=== PATIENT | female | born 1940 | race Caucasian/White ===

== ENCOUNTER 2018-01-29 13:23 | Emergency (ER) | payer MEDICARE, BC ==
[2018-01-29] MEDS ORDERED: NS 0.9% 1000 ML* 1,000 ML IV ONE (13:40)
[2018-01-29] MEDS ORDERED: Ondansetron INJ* 2 MG/ML VIAL IV ONE (13:41)
--- NOTE | 2018-01-29 14:01 | ED ---
GI/ HPI - HPI Summary HPI Summary: 77 year female presents with abdominal pain for the past couple days. She admits to nausea and vomiting that is going on for the past month. Daughter states that they have been switching her psychiatric medications but they have not changed anything in the past month. She states his been having changes in cognitive status but actually is more improved the past couple days. Has a follow-up with neurology after an MRI this week. No fevers. No chest pressures or shortness of breath. No cough. No recent illness. No recent antibiotic use. She admits to diarrhea. She admits to lower abdominal pain. No previous belly surgeries. she admits to jaw pain. No dental pain. - History of Current Complaint Chief Complaint: EDAbdPain Time Seen by Provider: 01/29/18 13:30 Stated Complaint: ABD PAIN Pain Intensity: 2 - Allergy/Home Medications Allergies/Adverse Reactions: Allergies Allergy/AdvReac Type Severity Reaction Status Date / Time No Known Allergies Allergy Verified 01/29/18 12:21 Home Medications: Home Medications Cyanocobalamin INJ * [Vitamin B12 INJ *] 1,000 mcg IM MONTHLY 01/29/18 [History Confirmed 01/29/18] Levothyroxine TAB* [Synthroid TAB*] 50 mcg PO DAILY 01/29/18 [History Confirmed 01/29/18] Metoclopramide TAB* [Reglan TAB*] 5 mg PO Q6H PRN 01/29/18 [History Confirmed ] PARoxetine HCL TAB* [Paxil TAB*] 10 mg PO DAILY 01/29/18 [History Confirmed ] traZODone TAB* [Desyrel TAB*] 50 mg PO BEDTIME 01/29/18 [History Confirmed 01/29] PMH/Surg Hx/FS Hx/Imm Hx Endocrine/Hematology History: Denies: Hx Diabetes Cardiovascular History: Denies: Hx Hypertension, Hx Pacemaker/ICD History: Denies: Hx Renal Disease Sensory History: Denies: Hx Hearing Aid Psychiatric History: Denies: Hx Panic Disorder - Surgical History Surgery Procedure, Year, and Place: LEFT KNEE REPLACEMENT. TONSILS Infectious Disease History: No Infectious Disease History: Denies: Traveled Outside the [place] in Last 30 Days - Family History Known Family History: Positive: Hypertension - Social History Alcohol Use: Weekly Substance Use Type: Reports: None Smoking Status (MU): Heavy Every Day Tobacco Smoker Review of Systems Negative: Fever Negative: Chest Pain Negative: Shortness Of Breath Positive: Abdominal Pain, Vomiting, Diarrhea, Nausea All Other Systems Reviewed And Are Negative: Yes Physical Exam Triage Information Reviewed: Yes Vital Signs On Initial Exam: Initial Vitals Temp Pulse Resp BP Pulse Ox 97.6 F 78 16 141/88 99 01/29/18 13:25 01/29/18 13:25 01/29/18 13:25 01/29/18 13:25 01/29/18 13:25 Vital Signs Reviewed: Yes Appearance: Positive: Well-Appearing Skin: Positive: Warm, Dry Head/Face: Positive: Normal Head/Face Inspection Eyes: Positive: Normal, Conjunctiva Clear ENT: Positive: Pharynx normal Respiratory/Lung Sounds: Positive: Clear to Auscultation, Breath Sounds Present Cardiovascular: Positive: Normal, RRR Abdomen Description: Positive: Soft, Other: - tenderness periumbilically Bowel Sounds: Positive: Present Musculoskeletal: Positive: Normal Neurological: Positive: Normal Psychiatric: Positive: Normal Diagnostics - Vital Signs Vital Signs Temp Pulse Resp BP Pulse Ox 01/29/18 13:25 97.6 F 78 16 141/88 99 - Laboratory Result Diagrams: 01/29/18 14:07 01/29/18 14:07 Lab Statement: Any lab studies that have been ordered have been reviewed, and results considered in the medical decision making process. - CT abd CT Interpretation: Positive (See Comments) - IMPRESSION: There is likely diverticulitis of the sigmoid colon without evidence of peridiverticular abscess. CT Interpretation Completed By: Radiologist - EKG No standard instances Cardiac Rate: NL EKG Rhythm: Sinus Rhythm EKG Interpretation: sinus rhythm GIGU Course/Dx - Course Course Of Treatment: 77 year female presents with abdominal pain for the past couple days. She admits to nausea and vomiting that is going on for the past month. Daughter states that they have been switching her psychiatric medications but they have not changed anything in the past month. She states his been having changes in cognitive status but actually is more improved the past couple days. Has a follow-up with neurology after an MRI this week. No fevers. No chest pressures or shortness of breath. No cough. No recent illness. No recent antibiotic use. She admits to diarrhea. She admits to lower abdominal pain. No previous belly surgeries. she admits to jaw pain. No dental pain. on exam has nontender jaw. tenderness lower abd. ekg sinus rhythmn. wbc normal. electrolytes normal. crp elevated. CT shows diverticulitis. will treat with cipro and flagyl. discussed will add on zofran for nausea. told to follow up with primary about CT results with adrenal adenoma. patient and family understand and agrees with plan. - Diagnoses Differential Diagnoses - Female: Colitis, Diverticulitis, Urinary Tract Infection Provider Diagnoses: Diverticulitis Discharge - Sign-Out/Discharge Documenting (check all that apply): Patient Departure - Discharge Plan Condition: Good Disposition: HOME Prescriptions: Ciprofloxacin TAB* [Cipro 500 MG TAB*] 500 mg PO BID #19 tab metroNIDAZOLE [Flagyl 500 MG TAB] 500 mg PO TID #29 tab Ondansetron ODT TAB* [Zofran 4 MG Odt TAB*] 4 mg PO Q6H PRN #20 tab.odt PRN Reason: Nausea Patient Education Materials: Diverticulitis (ED) Referrals: No Primary Care Phys,NOPCP [Primary Care Provider] - Additional Instructions: Take ciprofloxacin twice a day for 10 days, first dose given in ED Take Flagyl every 8 hours for 10 days, first dose given in ED Take Zofran every 6 hours for nausea Follow clear liquid diet until symptoms improve follow up with primary within 7 days Return to ED if unable to keep anything down, develop fever, or any new or worsening symptoms - Billing Disposition and Condition Condition: GOOD Disposition: Home
[2018-01-29 14:13] LABS: ABS Basophils 0.1 10^3/ul (0-0.2); ABS Eosinophils 0 10^3/ul (0-0.6); ABS Lymphocytes 1.5 10^3/ul (1.0-4.8); ABS Monocytes 0.5 10^3/ul (0-0.8); ABS Neutrophils 4.9 10^3/ul (1.5-7.7); ABS Nucleated RBC 0 10^3/ul; Eosinophil % 0.7 % (0-6); Hematocrit 43 % (35-47); Hemoglobin 14.6 g/dl (12.0-16.0); Lymphocyte % 21.4 % (25-47); Mean Corpuscular HGB Conc 34 g/dl (31-36); Mean Corpuscular Hemoglobin 34 pg (27-31); Mean Corpuscular Volume 100 fL (80-97); Mean Platelet Volume 7.9 um3 (7.4-10.4); Nucleated Red Blood Cells % 0.1; Platelet Count 410 10^3/ul (150-450); Red Blood Count 4.33 10^6/ul (4.00-5.40); Red Cell Distribution Width 13 % (10.5-15); White Blood Count 6.9 10^3/ul (3.5-10.8)
[2018-01-29 14:36] LABS: EGFR Non-African American 103.1 (>60)
[2018-01-29] MEDS ORDERED: Iohexol 300* (CONTRAST) 10 ML SDV IV ONE (15:00)
--- NOTE | 2018-01-29 16:25 | RAD ---
Indication: Lower abdominal pain. Contrast: Administered 93.0 ml of OMNIPAQUE 300 mg/ml CT of the abdomen and pelvis was performed after oral and IV contrast administration. Coronal and sagittal reconstructed images were obtained. No prior study is available for comparison. The lung bases demonstrate no pleural fluid, nodules or masses. Heart is of normal size without evidence of pericardial effusion. The liver is normal in size. No focal lesions or intrahepatic ductal dilatation is noted. The gallbladder demonstrates no calcified gallstones. No pericholecystic fluid or wall thickening is noted. The spleen is normal in size. The pancreas demonstrates no mass or pancreatic duct dilatation. The common duct is not dilated. There is a left adrenal mass measuring 2.5 cm and a right adrenal mass measuring up to 1.8 cm. These may represent adrenal adenomas. If clinically warranted MR of the adrenal glands, adrenal gland protocol CT or follow-up CT could be performed. The kidneys demonstrate symmetric nephrograms with areas of scarring. There is right renal cyst measuring up to 2.1 cm. No retroperitoneal lymphadenopathy is noted. No dilated loops of bowel are noted. CT of the pelvis demonstrates diverticulitis of the sigmoid colon with wall thickening of the sigmoid colon. Pericolonic infiltration of fat is noted. No evidence of peridiverticular abscess is noted. The uterus and ovaries are unremarkable. The urinary bladder is unremarkable. The bony structures are otherwise unremarkable. Degenerative disc disease at L2-L3, L3-L4 is noted. No compression fracture is noted. IMPRESSION: There is likely diverticulitis of the sigmoid colon without evidence of peridiverticular abscess. Bilateral adrenal masses are noted. These may represent adrenal adenomas. Follow-up exam by CT or MR of the adrenal glands should BE considered as clinically warranted.
[2018-01-29] MEDS ORDERED: Ciprofloxacin TAB* 500 MG PO ONE (16:35)
[2018-01-29] MEDS ORDERED: metroNIDAZOLE TAB* 250 MG PO ONE (16:35)
[2018-01-29 17:01] VITALS: BP 128/87
== END 2018-01-29 17:01 | disposition home or self-care (01) ==
LOC: ED 13:23
DX: K57.92 Diverticulitis of intestine, part unspecified, without perforation or abscess without bleeding (principal)
CPT/HCPCS: 36415; 74177; 80053; 83605; 83690; 84484; 85025; 86140; 93005; 96361; 96374; 96375; 99283; A9270-GY; J2405; Q9967

== ENCOUNTER 2018-02-11 12:04 | Emergency (ER) | payer MEDICARE, BC ==
[2018-02-11 13:37] LABS: ABS Basophils 0.1 10^3/ul (0-0.2); ABS Eosinophils 0.1 10^3/ul (0-0.6); ABS Lymphocytes 1.4 10^3/ul (1.0-4.8); ABS Monocytes 0.7 10^3/ul (0-0.8); ABS Neutrophils 4.8 10^3/ul (1.5-7.7); ABS Nucleated RBC 0 10^3/ul; Eosinophil % 1.9 % (0-6); Hematocrit 43 % (35-47); Hemoglobin 14.4 g/dl (12.0-16.0); Lymphocyte % 19.8 % (25-47); Mean Corpuscular HGB Conc 34 g/dl (31-36); Mean Corpuscular Hemoglobin 34 pg (27-31); Mean Corpuscular Volume 101 fL (80-97); Mean Platelet Volume 8.3 um3 (7.4-10.4); Nucleated Red Blood Cells % 0.1; Platelet Count 412 10^3/ul (150-450); Red Blood Count 4.26 10^6/ul (4.00-5.40); Red Cell Distribution Width 14 % (10.5-15); White Blood Count 7.1 10^3/ul (3.5-10.8)
[2018-02-11 13:49] LABS: EGFR Non-African American 88.6 (>60)
[2018-02-11 19:45] VITALS: BP 128/82
--- NOTE | 2018-02-11 23:56 | ED ---
Abdominal Pain/Female - HPI Summary HPI Summary: Patient is a 77 y/o F w/ c/o lower abdominal pain for the past two weeks. She was seen at [facility] [place] and diagnosed with diverticulitis. She was placed on 10 days of flagyl and cipro, which patient reports she has been taking. However, she did not follow up with PCP and GI as she was instructed to and is still experiencing pain. Pain is reported to be constant, she denies vomiting but reports some nausea and diarrhea. Black, tarry stools are denied. PMHx of diabetes and FMHx of colon polyps is denied. Patient further denies fever, chills, [place], ear pain, sore throat, blurred vision, double vision, neck pain, CP , SOB, back pain, dysuria, hematuria, blood in the stool, edema, bruising, rashes, anxiety, and depression. On triage, pain is rated 7/10, nothing is noted to aggravate/alleviate Sx. Home medications and allergies are reviewed. - History of Current Complaint Chief Complaint: EDAbdPain Stated Complaint: ABD PAIN Hx Obtained From: Patient Onset/Duration: Lasting Weeks - two weeks, Still Present Timing: Weeks - two weeeks Severity Initially: Severe - 7/10 Severity Currently: Severe - 7/10 Pain Intensity: 7 Pain Scale Used: 0-10 Numeric - 7/10 Location: Other - lower abdominal pain Aggravating Factor(s): Nothing Alleviating Factor(s): Nothing Associated Signs and Symptoms: Positive: Nausea, Diarrhea, Other: - denies chills, [place], ear pain, sore throat, blurred vision, double vision, neck pain, SOB , dysuria, hematuria, black/tarry stools, edema, bruising, rashes, anxiety, and depression. Negative: Fever, Chest Pain, Back Pain, Blood in Stool, Urinary Symptoms, Vomiting Allergies/Adverse Reactions: Allergies Allergy/AdvReac Type Severity Reaction Status Date / Time No Known Allergies Allergy Verified 02/11/18 12:17 PMH/Surg Hx/FS Hx/Imm Hx Endocrine/Hematology History: Denies: Hx Diabetes Cardiovascular History: Denies: Hx Hypertension, Hx Pacemaker/ICD History: Denies: Hx Renal Disease Sensory History: Denies: Hx Hearing Aid Psychiatric History: Denies: Hx Panic Disorder - Surgical History Surgery Procedure, Year, and Place: LEFT KNEE REPLACEMENT. TONSILS Infectious Disease History: No Infectious Disease History: Denies: Traveled Outside the [place] in Last 30 Days - Family History Known Family History: Positive: Hypertension - Social History Alcohol Use: Weekly Substance Use Type: Reports: None Smoking Status (MU): Heavy Every Day Tobacco Smoker Review of Systems Negative: Fever, Chills Positive: Other - NEGATIVE: double vision . Negative: Blurred Vision Negative: Sore Throat, Ear Ache Negative: Chest Pain Negative: Shortness Of Breath Positive: Abdominal Pain, Diarrhea, Nausea. Negative: Vomiting Positive: other - NEGATIVE: blood in stool, black/tarry stool . Negative: dysuria, hematuria Positive: Other - NEGATIVE: back/neck pain . Negative: Edema Negative: Rash, Bruising Negative: Headache Negative: Anxious, Depressed All Other Systems Reviewed And Are Negative: No Physical Exam - Summary Physical Exam Summary: Appearance: Alert, conversive, nontoxic appearing Skin: Warm, dry, no mottling, no rashes, no contusions HEENT: EOMI, PERRL, moist mucous membranes Neck: No masses on the neck, supple Respiratory: Clear to auscultation, breath sounds present, no rales, no rhonchi , no wheezes Cardiovascular: RRR, pulses are symmetrical in both lower and upper extremities Abdomen: Soft, non-tender Bowel Sounds: Present Musculoskeletal: No CVA tenderness, no obvious deformity, moving all extremities in a grossly normal manner Neurological: A&Ox3, CN II-XII Intact, moving all extremities symmetrically Psychiatric: Normal affect and mood Triage Information Reviewed: Yes Vital Signs On Initial Exam: Initial Vitals Temp Pulse Resp BP Pulse Ox 98.7 F 92 14 133/91 95 02/11/18 12:15 02/11/18 12:15 02/11/18 12:15 02/11/18 12:15 02/11/18 12:15 Vital Signs Reviewed: Yes Diagnostics - Vital Signs Vital Signs Temp Pulse Resp BP Pulse Ox 02/11/18 19:49 99.7 F 86 16 128/82 93 02/11/18 19:41 128/82 02/11/18 19:34 123/84 02/11/18 19:04 115/81 02/11/18 18:34 123/83 02/11/18 18:04 85 115/84 94 02/11/18 18:00 84 95 02/11/18 17:34 89 120/82 94 02/11/18 17:33 89 02/11/18 14:58 98.7 F 91 16 122/82 96 02/11/18 12:15 98.7 F 92 14 133/91 95 - Laboratory Lab Results: Lab Results 02/11/18 02/11/18 02/11/18 Range/Units 13:10 13:10 13:10 WBC 7.1 (3.5-10.8) 10^3/ul RBC 4.26 (4.00-5.40) 10^6/ul Hgb 14.4 (12.0-16.0) g/dl Hct 43 (35-47) % MCV 101 H (80-97) fL MCH 34 H (27-31) pg MCHC 34 (31-36) g/dl RDW 14 (10.5-15) % Plt Count 412 (150-450) 10^3/ul MPV 8.3 (7.4-10.4) um3 Neut % (Auto) 67.5 (38-83) % Lymph % (Auto) 19.8 L (25-47) % [place] % (Auto) 9.5 H (0-7) % Eos % (Auto) 1.9 (0-6) % Baso % (Auto) 1.3 (0-2) % Absolute Neuts (auto) 4.8 (1.5-7.7) 10^3/ul Absolute Lymphs (auto) 1.4 (1.0-4.8) 10^3/ul Absolute Monos (auto) 0.7 (0-0.8) 10^3/ul Absolute Eos (auto) 0.1 (0-0.6) 10^3/ul Absolute Basos (auto) 0.1 (0-0.2) 10^3/ul Absolute Nucleated RBC 0 10^3/ul Nucleated RBC % 0.1 Sodium 141 (135-145) mmol/L Potassium 4.0 (3.5-5.0) mmol/L Chloride 106 (101-111) mmol/L Carbon Dioxide 28 (22-32) mmol/L Anion Gap 7 (2-11) mmol/L BUN 8 (6-24) mg/dL Creatinine 0.65 (0.51-0.95) mg/dL Est GFR ( Amer) 107.2 (>60) Est GFR (Non-Af Amer) 88.6 (>60) BUN/Creatinine Ratio 12.3 (8-20) Glucose 99 (70-100) mg/dL Lactic Acid 1.6 (0.5-2.0) mmol/L Calcium 9.4 (8.6-10.3) mg/dL Total Bilirubin 0.20 (0.2-1.0) mg/dL AST 22 (13-39) U/L ALT 13 (7-52) U/L Alkaline Phosphatase 76 (34-104) U/L C-Reactive Protein 9.36 H (<8.01) mg/L Total Protein 6.8 (6.4-8.9) g/dL Albumin 3.8 (3.2-5.2) g/dL Globulin 3.0 (2-4) g/dL Albumin/Globulin Ratio 1.3 (1-3) Lipase 33 (11.0-82.0) U/L Result Diagrams: 02/11/18 13:10 02/11/18 13:10 Lab Statement: Any lab studies that have been ordered have been reviewed, and results considered in the medical decision making process. Abdominal Pain Fem Course/Dx - Course Course Of Treatment: Patient is a 77 y/o F w/ c/o lower abdominal pain for the past two weeks. She was seen at [facility] [place] and diagnosed with diverticulitis. She was placed on 10 days of flagyl and cipro, which patient reports she has been taking. However, she did not follow up with PCP and GI as she was instructed to and is still experiencing pain. Pain is reported to be constant, she denies vomiting but reports some nausea and diarrhea. Black, tarry stools are denied. PMHx of diabetes and FMHx of colon polyps is denied. Physical exam was normal. Labs showed lipase 33, CRP 9.36, lactic acid 1.6, WBC 7.1. Blood culture obtained. Patient was instructed to establish care in the area with a primary care physician and a call person. Patient is agreeable with this plan. Dx of abdominal pain, Hx of diverticulitis. - Diagnoses Provider Diagnoses: Abdominal pain, History of diverticulitis Discharge - Sign-Out/Discharge Documenting (check all that apply): Patient Departure - discharge - Discharge Plan Condition: Stable Disposition: HOME Patient Education Materials: Acute Abdominal Pain (ED) Referrals: [facility] [Provider Group] No Primary Care Phys,NOPCP [Primary Care Provider] - Dimitris Molina MD [Medical Doctor] - Additional Instructions: Please establish care in the area with a primary care physician and a call person. return if worse or any new symptoms. It is important to take all medications as previously instructed. Tylenol and motrin for pain. - Billing Disposition and Condition Condition: STABLE Disposition: Home - Attestation Statements Document Initiated by Scribe: Yes Documenting Scribe: Jason Davalos Provider For Whom Scribe is Documenting (Include Credential): Ara Farmer MD Scribe Attestation: IJason , scribed for Ara Farmer MD on 02/14/18 at 1754. Scribe Documentation Reviewed: Yes Provider Attestation: The documentation as recorded by the Jason pascual accurately reflects the service I personally performed and the decisions made by me, Ara Farmer MD
== END 2018-02-11 19:49 | disposition home or self-care (01) ==
LOC: ED 12:04
DX: R10.30 Lower abdominal pain, unspecified (principal); K57.92 Diverticulitis of intestine, part unspecified, without perforation or abscess without bleeding; Z72.0 Tobacco use; E11.9 Type 2 diabetes mellitus without complications; Z86.010 Personal history of colon polyps
CPT/HCPCS: 36415; 80053; 83605; 83690; 85025; 86140; 87040; 99283